=== PATIENT | female | born 1965 | race Caucasian/White ===

== ENCOUNTER → 2020-12-12 14:14 | Outpatient (BNVA) | payer SELFPAY | PROVIDERS: Visit Provider Nurse Practitioner Family ==

== ENCOUNTER 2021-01-27 10:29 | Day surgery (SDC) | payer OTHER, SELFPAY ==
[2021-01-22 14:03] VITALS: BMI 35.4
--- NOTE | 2021-01-27 10:15 | P.CONAN_ITS ---
FORMERLY [facility], LATER [facility] Past Medical History Medical History Elevated cholesterol Hx of heartburn Low back pain Family History Family History Sister Diabetes Surgical History Surgical History H/O arthroscopy of left knee History of back surgery Social History Social History Household Members: None Smoking Status: Current every day smoker Tobacco Type: Cigarette Cigarettes Per Day: 10 Advance Directives: No Advance Directives Information Provided: No Advance Directives on File: No Meds Allergies Allergy/AdvReac Type Severity Reaction Status Date / Time No Known Allergies Allergy Verified 01/22/21 13:59 Active Medications: Current Medications Generic Name Dose Route Start Last Admin Trade Name Freq PRN Reason Stop Dose Admin Lactated Ringer's 1,000 mls @ 50 mls/hr 01/27/21 07:30 Lr IV .Q20H [facility] Home Medications Medication Instructions Recorded Confirmed Last Taken Type cholecalciferol (vitamin D3) 50 50 mcg PO DAILY 12/12/20 01/22/21 Unknown History mcg (2,000 unit) capsule acetaminophen 650 mg PO Q6H PRN 01/22/21 01/22/21 Unknown History calcium carbonate [Tums] 200 mg PO BID PRN 01/22/21 01/22/21 Unknown History ibuprofen-diphenhydramine cit 1 cap PO BEDTIME PRN 01/22/21 01/22/21 Unknown History [Advil PM] Exam Exam Date and Time: January 27, 2021 1015 Height,Weight and Vital Signs: Height 5 ft 9 in Weight 108.862 kg Airway Mallampati Class: II TM Dist: >3cm Neck ROM: Full Loose/Missing/Broken Teeth: No Heart: RRR Lungs: CTA Assessment and Plan Assessment Anesthesia Assessment: Anesthesia Plan Discussed and Chart Reviewed Final Anesthetic Review NPO: Yes ASA Class: II Final Preanesthetic Review: Meds/Allgs Chart Reviewed, Consent Obtained/Reviewed and Anes Risks/Benef Reviewed Patient Risk: Low Procedure Risk: Low Anesthetic Plan Anesthetic Plan: MAC: Disposition: Standard PACU
[2021-01-27 10:35] VITALS: BP 136/78; PULSE 78; RESP 18; TEMP 36.6; O2SAT 97
[2021-01-27] MEDS: Lactated Ringers 1,000 ML 50 ML IV (10:49)
--- NOTE | 2021-01-27 10:49 | MHC.SHP ---
Pre-Procedural Eval Section B Chief Complaint: Screening Relevant Family History (Specify if Yes): No Relevant Social History: Tobacco Use Present Medications: see Short Stay Collaborative assessment Medical History: Significant History (Elevated cholesterol Hx of heartburn Low back pain) History of Previous Operations: Relevant previous surgery/procedure and date(s) (arthroscopy, back surgery) Allergies: Allergies Allergy/AdvReac Type Severity Reaction Status Date / Time No Known Allergies Allergy Verified 01/22/21 13:59 Review of Systems Sugical H&P ROS: Negative: Constitution, Cardiovascular, Respiratory, Neurological, Psychiatric, Hem-Onc, Allergic/Immunologic, Gastrointestinal, Genitourinary, Musculoskeletal, Integumentary, Endocrine and Eyes/Ears/Nose/Throat Exam Surgical H&P Exam: Normal: HEENT, Normal: Heart, Normal: Lungs, Normal: Extremities, Normal: Abdomen, Normal: Skin and Normal: Neurological Plan Diagnosis/Plan: Unchanged I have reviewed the history and physical and performed a pertinent physical examination on my patient. No changes have occurred unless specified.
--- NOTE | 2021-01-27 11:20 | PM.OP ---
Brief Operative Note Date of Service: 01/27/21 Pre-op diagnosis: colon screen Post-op diagnosis: same Procedure: see op note Surgeon: Carley Cantu MD Anesthesia: MAC Estimated blood loss (mL): 0 Condition: stable Disposition: PACU
--- NOTE | 2021-01-27 11:21 | W.PM.OPN ---
Operative Note Operative Note Date of Service: 01/27/21 Narrative: Operative Information Procedure Description: Colonoscopy COLONOSCOPY Instrument: Olympus variable stiffness pediatric scope 190L Colonoscopy Monitoring: Vital signs and clinical assessment, continuous EKG monitoring, Pulse oximetry, Carbon Dioxide monitoring and blood pressure monitoring were done throughout the procedure. Colon withdrawal time was 9 minutes. Procedure: The patient was placed in the left lateral decubitis position and pre-procedure medications were administered. After a digital rectal examination of the ano-rectum, the video colonoscope was inserted into the rectum and advanced through the colon to the cecum/TI. The colonoscope was slowly withdrawn in a retrograde panoramic fashion and the colon mucosa was carefully examined including a retroflexed view of the rectum. Findings and interventions are described below. Procedure Difficulty: easy Findings: Terminal Ileum-normal Cecum:normal Ascending Colon: few scattered diverticula Transverse Colon -normal Descending Colon:normal Sigmoid Colon: moderate severe diverticulosis Rectum: Retroflexion with small internal hemorrhoids, grade I Anorectum - normal Colon preparation: [place] Bowel Preparation Scale Right colon; 3 Transverse colon: 2 Left colon; 2 (0 = Unprepared colon segment with mucosa not seen due to solid stool that cannot be cleared. 1 = Portion of mucosa of the colon segment seen, but other areas of the colon segment not well seen due to staining, residual stool and/or opaque liquid. 2 = Minor amount of residual staining, small fragments of stool and/or opaque liquid, but mucosa of colon segment seen well. 3 = Entire mucosa of colon segment seen well with no residual staining, small fragments of stool or opaque liquid) Impression and Post Procedure Diagnosis: internal hemorrhoids diverticular disease Plan: High fiber diet leaflet Avoid straining at stool, epsom salts and sitz bath, anusol supps or cream as needed Repeat Colonoscopy in 10 years or earlier if clinically indicated Above findings were reviewed with the patient and relevant handouts were provided if indicated.
[2021-01-27 11:25] VITALS: BP 134/84; PULSE 70; RESP 18; TEMP 37; O2SAT 98
[2021-01-27 11:40] VITALS: BP 113/72; PULSE 61; RESP 17; O2SAT 97
[2021-01-27 11:55] VITALS: BP 117/73; PULSE 60; RESP 16; TEMP 37.1; O2SAT 100
== END 2021-01-27 12:22 | disposition home or self-care (01) ==
PROVIDERS: PCP Student in an Organized Health Care Education/Training Program; Visit Provider Internal Medicine Gastroenterology
PROC: 0DJD8ZZ Inspection of Lower Intestinal Tract, Via Natural or Artificial Opening Endoscopic (ICD-10-PCS; CPT 45378; principal; 2021-01-27 11:40)
DX: Z12.11 Encounter for screening for malignant neoplasm of colon (principal); K57.30 Diverticulosis of large intestine without perforation or abscess without bleeding; K64.0 First degree hemorrhoids; E78.00 Pure hypercholesterolemia, unspecified; F17.210 Nicotine dependence, cigarettes, uncomplicated; Z79.899 Other long term (current) drug therapy
CPT/HCPCS: 45378

== ENCOUNTER → 2021-02-03 14:34 | Outpatient (BNVA) | payer OTHER, SELFPAY | PROVIDERS: PCP Student in an Organized Health Care Education/Training Program; Visit Provider Nurse Practitioner Family ==

== ENCOUNTER 2023-12-02 10:16 | Outpatient (REF) | payer OTHER, SELFPAY ==
[2023-12-02 14:34] LABS: Anion Gap 13 (12-20); Blood Urea Nitrogen 16 mg/dL (9-16); Carbon Dioxide 25 mmol/L (22-29); Chloride 105 mmol/L (96-108); Estimated Glomerular Filt Rate > 60; Glucose Random 76 mg/dL (60-115); Potassium 4.1 mmol/L (3.3-5.1); Sodium 139 mmol/L (135-145)
[2023-12-03 04:18] LABS: CT PCR NOT DETECTED (Not Detect.); NG PCR NOT DETECTED (Not Detect.)
== END 2023-12-02 10:17 | disposition home or self-care (01) ==
LOC: HO.CHCLDS 10:16
PROVIDERS: Visit Provider Student in an Organized Health Care Education/Training Program
DX: E78.5 Hyperlipidemia, unspecified (principal)
CPT/HCPCS: 0353U; 36415; 80048; 88142

== ENCOUNTER 2025-05-29 14:57 | Outpatient (AMB) | payer OTHER, SELFPAY ==
--- NOTE | 2025-05-29 15:14 | MHC.OFFVIS ---
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 States left is worse. Patient reports she is having numbness and tingling all day long and worse at night. Reports she is unable to sleep laying flat due to this and has to be sitting up right for some relief. Has tried wrist braces and says some days they help some days they make it worse. She utilizes her braces for sleep. She has not tried any occupational therapy. Reports she is having tingling in the 1st, 2nd, and 3rd figits of her bilateral hands. She has an EMG/NCS scheduled for 06/26/25. She states her hands are equal in symptoms. Would like cortisone injections. 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 She complains of numbness in her bilateral hands, L>R. Symptoms intermittent, but daily, worse at night & affecting her sleep. She says she has more constant tingling in the median nerve distribution, and denies any small finger numbness. She says that lying flat on her back makes her numbness worse and she has to sleep propped up. She finds bracing helps occasionally, but also sometimes makes her symptoms worse. She denies any other treatment options. She is scheduled to see Neurology on 06/26/25, she believes for a NCS. 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 Review of Systems Const All systems reviewed & are unremarkable except as noted in HPI and below Physical Exam Const General: cooperative, healthy appearing and no acute distress Orientation/consciousness: patient oriented x3 HEENT Head: Yes normocephalic and Yes atraumatic Eyes EOM: EOMs intact bilaterally Resp Effort & Inspection: normal respiratory effort and able to speak in complete sentences Cardio Jugular venous distension: no JVD Skin General skin exam: turgor normal Rashes: no rashes Neuro General: patient oriented x3 Extrem Other: Evaluation of Bilateral Upper Extremity: The patient is alert, oriented, and in no acute distress Neuro: Dense numbness in the median nerve distribution bilaterally. Normal sensation in the ulnar nerve distribution bilaterally No thenar or intrinsic wasting Good APB muscle belly firing and good finger cross Vascular: Cap refill brisk ROM: She can make a fist and extend all her digits Skin: No lacerations or abrasions. General: No Ecchymosis. No Erythema or evidence of infection. Psych Appearance: grossly normal Affect: normal affect Attitude: cooperative Assessment & Plan Assessment & Plan (1) Numbness and tingling in both hands: Code(s): R20.0 - Anesthesia of skin; R20.2 - Paresthesia of skin Category: Medical Plan Assessment & Plan: 1. Left hand numbness In the median nerve distribution With dense numbness 2. Right hand numbness In the median nerve distribution With dense numbness Patient reports worsening of symptoms when lying flat on her back or sides, and finds relief when sleeping propped up & reclining. I educated her about carpal & cubital tunnel syndrome She has an appointment with neurology on 06/26/25, she believes for a NCS I ordered a NCS to assess for peripheral nerve compression She will follow up when completed for review Scribed for Alida Aguilar MD by [address] director biomedical engineering, on 05/29/25 at 3:20 PM, EST. Orders: Orders NE electromyogram (EMG) Today R20.0 - Anesthesia of skin, R20.2 - Paresthesia of skin NE nerve conduction velocity Today R20.0 - Anesthesia of skin, R20.2 - Paresthesia of skin Coding Level of Care Code New Pt Level 3 (10386) Diagnoses Numbness and tingling in both hands R20.0; R20.2
--- OUTSIDE RECORDS SUMMARY | 2025-05-29 15:48 | XMS_ITS | Encounter Summary ---
Author Organization [employer] Address [address] 7 [place] [address] Care Team Providers Care Coremaker Machine Name Role Phone Tianna Pereyra MD Primary Care Provider [phone] Encounter Details Date Type Department Care Team ([facility] Contact Info) Description 08/21/2024 Orders Only [facility] MED & PEDS [address], [place] [id number] Tianna Pereyra MD [address] [place] [address] Social History Tobacco Use Types Packs/Day Years Used Date Smoking Tobacco: Every Day Cigarettes Smokeless Tobacco: Never Alcohol Use Standard Drinks/Week Comments Never 0 (1 standard drink = 0.6 oz pur e alcohol) Alcohol Answer Date Recorded Frequency of Alcohol Consumption Not on file 08/17/2024 Average Number of Drinks Not on file 024 Frequency of Binge Drinking Not on file 08/01 Score 0 08/17/2024 Depression Answer Date Recorded Patient Health Questionnaire-9 Score 4 08/17/2024 Patient Health Questionnaire-9 Score 4 08/17/2024 Last PHQ-9: Questionnaire Data Not on file 1 Housing Stability Answer Date Recorded What is your housing situation today? I have [place] 12/02/[address] you li ve. Do you have problems with any of the following? None of the above 12/02/2023 Food Insecurity Answer Date Recorded Within the past 12 months, y ou worried that your food would run out before you got money to buy more: Never True 12/02/2023 Within the past 12 months,th e food you bought just didn't last and you didn't have enough money to get more: Never True 11/2023 Transportation Answer Date Recorded In the past 12 months, has l ack of transportation kept you from medical appts, meetings, work or from getting things needed for daily living? No 12/02/2023 Utilities Answer Date Recorded In the past 12 months, has t he electric, gas, oil or water company threatened to shut off services in your home? No 12/02/2023 Depression Answer Date Recorded Patient Health Questionnaire-2 Score 0 08/17/2024 Internet Access Answer Date Recorded Internet Access Q1 No 08/17/2024 Internet Access Q2 I do not want or need it 08/01 Comments No Sex and Gender Information Value Date Recorded Sex Assigned at Female 08/31/2022 10:18 AM EDT Legal Sex Female 10:18 AM EDT Gender Identity Female 08/31/2022 10:18 AM EDT Sexual Orientation Straight 08/31/2022 10 :18 AM EDT documented as of this encounter Plan of Treatment Not on file documented as of this encounter Visit Diagnoses Not on filedocumented in this encounter Additional Health Concerns Assessment Noted Time PHQ-9 Depression Total Score: 4 08/17/20 24 10:49 AM EDT documented as of this encounter Care Teams Coremaker Machine Relationship Specialty Start Date End Date Tianna Pereyra MD [address] [place] [address] PCP - General Family Medicine 11/12/20 documented as of this encounter
== END 2025-05-29 15:34 | disposition home or self-care (01) ==
LOC: HO.HOS 14:58
PROVIDERS: PCP Student in an Organized Health Care Education/Training Program; Visit Provider Orthopaedic Surgery
DX: R20.0 Anesthesia of skin (principal); R20.2 Paresthesia of skin
CPT/HCPCS: 99203

== ENCOUNTER → 2025-05-29 14:57 | Outpatient (BNVA) | payer OTHER, SELFPAY | PROVIDERS: PCP Student in an Organized Health Care Education/Training Program; Visit Provider Orthopaedic Surgery | DX: R20.0 Anesthesia of skin (principal); R20.2 Paresthesia of skin | CPT/HCPCS: 99202 ==

== ENCOUNTER 2025-06-26 08:23 | Outpatient (REF) | payer OTHER, SELFPAY ==
--- OUTSIDE RECORDS SUMMARY | 2025-06-26 08:34 | XMS_ITS | Encounter Summary ---
Author Organization [employer] Address [address] [place] [address] 7 [place] [address] Care Team Providers Care Senior Physician Name Role Phone Tianna Pereyra MD Primary Care Provider [phone] Demarco Balderrama CNP Primary Care Provider [phone] Encounter Details Date Type Department Care Team ([facility] st Contact Info) Description 08/21/2024 Orders Only [facility] MED & PEDS [address] [place], [place] [phone] Tianna Pereyra MD [address] [place] [address] Social History Tobacco Use Types Packs/Day Years [...] documented as of this encounter Care Teams Senior Physician Relationship Specialty Start Date End Date Tianna Pereyra MD [address] [place] [address] PCP - General Family Medicine 11/12/20 06/10/25 Demarco Balderrama CNP [address] [place] [address] PCP - General Family Medicine 06/11/25 documented as of this encounter
--- OUTSIDE RECORDS SUMMARY | 2025-06-26 08:35 | XMS_ITS | Clinical Summary ---
Author Organization [employer] Address [address] [place] [address] [place] [address] Care Team Providers Care Wool Hat Flanger Name Role Phone Tacos Juliantannaandrew [place] Primary Care Provider [phone] Allergies No known active allergies Medications cholecalciferol (Vitamin D-3) 25 MCG (1000 UT) capsule Take 1 capsule (25 mcg) by mouth Once per day. 90 capsule 1 08/21/2024 Active simvastatin (Zocor) 10 MG tablet TAKE 1 TABLET BY MOUTH ONCE DAILY IN THE EVENING 30 tablet 3 04/02/2025 Active gabapentin (Neurontin) 100 MG capsule Take 1 capsule (100 mg) by mouth 2 times daily. 60 capsule 04/12/2025 Active Active Problems Problem Noted Date Diagnosed Date Bilateral carpal tunnel syndrome 04/12/2025 Hyperlipidemia 08/17/2024 Encounters Date Type Department Care Team Description 05/14/2025 Orders Only [facility] MED & PEDS [address] [place] [address] Stephen Dsouza MD Bilateral carpal tunnel syndrome (Primary Dx) 04/24/2025 Telephone [facility] [employer] [address] [place], [place] [phone] Stephen Dsouza MD EMG ORDER 04/13/2025 Telephone [facility] [employer] [address] [place], [place] [phone] Stephen Dsouza MD EMG ORDER 04/12/2025 4:15 PM EDT Office Visit [facility] PEDS [address] [place] [address] Stephen Dsouza MD Bilateral carpal tunnel syndrome (Primary Dx) 04/12/2025 Travel 04/09/2025 Telephone [facility] CH[facility] MED & PEDS [address] [place] [address] Tianna Pereyra MD Nurse Triage 04/01/2025 Refill [facility] MEDICINE [address] [place] [address] Tianna Pereyra MD from Last 3 Months Immunizations Immunization Administration Dates Next Due Influenza Injectable Quadriv alant Preservative Free IIV4 MDCK 07/09/2023,07/09/2022,07/02/2021 Influenza injectable quadriv alent preservative free 08/02/2020,07/02/2015 Influenza, IIV3, injectable 07/09/2014, 3 Influenza, seasonal, injecta ble, preservative free 06/28/2024,07/14/2016 Influenza, trivalent, adjuvanted 07/11/2017 Tdap 08/17/2024 Zoster, Recombinant 08/02/2020 Social History Tobacco Use Types Packs/Day Years Used Date Smoking Tobacco: Every Day Cigarettes Smokeless Tobacco: Never Tobacco Cessation:Ready to Q uit: Not Asked; Counseling Given: Not Answered Alcohol Use Standard Drinks/Week Comments Never 0 [...] Orientation Straight 08/31/2022 10 :18 AM EDT Last Filed Vital Signs Vital Sign Reading Time Taken Comments Blood Pressure 132/76 04/12/2025 4:03 PM EDT Pulse 76 04/12/2025 4:03 PM EDT Temperature 36.1 C (96.9 F) 04/12/2025 4:03 PM EDT Respiratory Rate 20 04/12/2025 4:03 PM EDT Oxygen Saturation 98% 08/17/2024 10:44 AM EDT Inhaled Oxygen Concentration - - Weight 103 kg (226 lb) 04/12/2025 4:03 PM EDT Height 172.1 cm (5' 7.75 ) 04/12/2025 4:03 PM ED T Body Mass Index 34.62 04/12/2025 4:03 PM EDT Plan of Treatment Health Maintenance Due Date Last Done Comments CT Colonography 1965 FIT DNA/Cologuard 1965 FIT 1965 FOBT 1965 HIV Screening 1965 Sigmoidoscopy 1965 Disability Screening 1965 Hepatitis C Screening 1983 Hepatitis B Vaccines (1 of 3 - 19+ 3-dose series) 1984 Pneumococcal Vaccine: 50+ Years (1 of 2 - PCV) 1984 Mammogram 2005 Zoster Vaccines (2 of 2) 09/27/2020 08/02/2020 COVID-19 Vaccine (3 - season) 2024 03/03/2021, 02/09/2021 Influenza Vaccine (#1) 2025 4, 07/09/2023, 07/09/2022, Additional history exists Alcohol/Substance Use Screening 08/17/2025 08/17/2024 Depression Screening 08/17/2025 08/17/2024, 08/17/20 24 SDOH Screening 08/17/2025 08/17/2024 Tobacco Screening 08/17/2025 08/17/2024 HPV/Cotest 11/12/2025 11/12/2020 Cervical Cancer Screening 12/02/2026 Pap Smear 12/02/2026 12/02/2023, 11/12/2020 Lipid Panel 08/18/2029 08/18/2024, 12/04/2020 Colonoscopy 01/27/2031 01/27/2021 Colorectal Cancer Screening 01/27/2031 DTaP/Tdap/Td Vaccines (2 - Td or Tdap) 08/17/2034 08/17/2024 RSV Patients and Patients Aged 60 years or older (1 - 1-dose 75+ series) 2040 HIB Vaccines Aged Out No longer eligi ble based on patient's age to complete this topic HPV Vaccines Aged Out No longer eligi ble based on patient's age to complete this topic Hepatitis A Vaccines Aged Out No long er eligible based on patient's age to complete this topic IPV Vaccines Aged Out No longer eligi ble based on patient's age to complete this topic Meningococcal B Vaccine Aged Out No l onger eligible based on patient's age to complete this topic Meningococcal Vaccine Aged Out No asya blanquita eligible based on patient's age to complete this topic RSV under 20 months Aged Out No longe r eligible based on patient's age to complete this topic Rotavirus Vaccines Aged Out No longer eligible based on patient's age to complete this topic Procedures Procedure Name Priority Date/Time Associated Diagnosis Comments LIPID PANEL, STANDARD Routine 08/18/2024 Hyperlipidemia, unspecified hyperlipidemia type PAP SMEAR Routine 12/02/2023 10:18 AM EST Pap smear for cervical cancer screening HM COLONOSCOPY Routine 01/27/2021 HPV MRNA E6/E7 Routine 11/12/2020 3:20 PM EST from Last 3 Months or Most Recently Relevant to Health Maintenance Results * Lipid Panel, Standard (08/18/2024) Blood Venous blood specimen / Unknown us Tianna Pereyra MD LAB BLOOD ORDERABLES Final Resul t [facility] [address] [place] [phone] * Pap Smear (12/02/2023 10:18 AM EST) Swab Cervical swab / Unknown 12/02/2023 10:18 AM EST 12/03/2023 9:40 AM EST Narrative [facility] - 12/15/2023 3:05 PM EST ----- ------- Name: Adele Damon Age/Sex: 58/F : 1965 Unit#: [id number] Attend Dr: Tianna Pereyra MD Re12/02/23 Status: DEP REF Location: [facility] Disch: ----- ------- SPEC : [id number] RECD: 12/03/23 STATUS: JUSTINE TORIBIO NUM: [id number] JOYCE: 12/02/23-1018 [facility] DR: Tianna Pereyra MD ENTERED: 12/03/23-1004 SP TYPE: Pap Smr OTHR DR: ORDERED: Pap Smear Interpretation Satisfactory for evaluation. Negative for intraepithelial lesion or malignancy. Clinical Information LMP: Postmenopausal Previous PAP test: Unknown date/findings Material Received ThinPrep-Vaginal/Cervical ----- ------- Signed (signature on file) PAPO Maldonado (ASCP) 12/15/23 1505 ----- ------- END OF REPORT Tianna Pereyra MD LAB CYTOLOGY ORDERABLES Final Re sult [facility] [address] [place] [phone] * Hm Colonoscopy (01/27/2021) Colonoscopy Normal Normal Narrative Ina Montes - 01/27/2021 Recommended 10 years. See see external hospital admission note on 01/27/2021 Historical Provider HEALTH MAINTENANCE Final Result * HPV mRNA E6/E7 (11/12/2020 3:20 PM EST) HPV nRNA E6/E7 Not Detected Not Detected [facility] Comment: This test was performed using the APTIMA HPV Assay ([employer] This assay detects E6/E7 viral messenger RNA (mRNA) from 14 high-risk HPV types (16,18,31,33,35,39,45,51,52,56,58,59,66,68). The analytical performance characteristics of this assay have been determined by [employer]. The modifications have not been cleared or approved by the FDA. This assay has been validated pursuant to the CLIA regulations and is used for clinical purposes. 11/12/2020 3:20 PM EST us Marifer OLMOS LAB BLOOD ORDERABLES Marichuy salvador Result [facility] from Last 3 Months or Most Recently Relevant to Health Maintenance Insurance [employer] 3 Care Teams Wool Hat Flanger Relationship Specialty Start Date End Date Demarco Balderrama CNP [address] [place] [id number] PCP - General Family Medicine 06/11/25
--- NOTE | 2025-06-26 08:38 | EMG_ITS ---
Patient Complaints: Paresthesia of bilateral upper extremity Procedure done: EMG / NCV Bilateral median and ulnar motor and sensory studies were performed bilateral radial sensory studies were performed an EMG needle examination was performed. 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
== END 2025-06-26 08:24 | disposition home or self-care (01) ==
LOC: HO.NEURO 08:23
PROVIDERS: Absent Provider Orthopaedic Surgery; PCP Student in an Organized Health Care Education/Training Program; Visit Provider Internal Medicine
DX: G56.03 Carpal tunnel syndrome, bilateral upper limbs (principal)
CPT/HCPCS: 95886; 95911

== ENCOUNTER → 2025-06-26 08:38 | Outpatient (BNV) | payer OTHER, SELFPAY | PROVIDERS: Absent Provider Orthopaedic Surgery; PCP Student in an Organized Health Care Education/Training Program; Visit Provider Psychiatry & Neurology Neurology | DX: G56.03 Carpal tunnel syndrome, bilateral upper limbs (principal) | CPT/HCPCS: 95886; 95911 ==

== ENCOUNTER 2025-07-10 15:13 | Outpatient (AMB) | payer OTHER, SELFPAY ==
--- NOTE | 2025-07-10 15:43 | A.OFFVIS_ITS ---
Intake Visit Reasons: OV-Bilateral CTS-EMG follow up Intake Note: Adele 59 yr old right hand dominant female presents today for her EMG review of bilateral hands. States she is not interested in discussing surgery. States she will have a chat with her PCP first. 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 She complains of numbness in her bilateral hands, L>R. Dense numbness in the median nerve distribution, worse at night & affecting her sleep. She denies any small finger numbness. She finds bracing helps occasionally, but also sometimes makes her symptoms worse. She denies any other treatment options. 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 Left carpal tunnel syndrome, moderate With dense numbness 2. Right carpal tunnel syndrome, moderate With dense numbness I educated her about this condition I discussed operative and non-operative treatment options The patient would like to proceed with surgery, but no sooner than sometime in August. She would like to begin with her left side We can discuss treatment for her right hand when she has recovered from surgery. The risks and benefits of operative treatment were discussed with the patient and the patient wishes to proceed with surgery. These risks include, but are not limited to risk of damage to blood vessels, nerves, tendons, infection, recurrence, incomplete relief of preoperative symptoms, persistent pain, possible need for further surgery and the risks associated with regional blocks and anesthesia. I explained the risks of her sensation not returning, but that surgery is important to maintain muscle function and preserve any sensation possible. She expressed understanding The plan is to take the patient to the operating room sometime in the next few weeks for the following procedures: 1. Left carpal tunnel release, under local All of the preoperative paperwork including the consent was reviewed today. All the patient's questions were answered. The patient understands that they will be contacted by our neurosurgery research director soon to schedule this procedure She denies Diabetes, blood thinners, asthma, heart, lung, kidney issues Scribed for Alida Aguilar MD by [address] Street, biomedical engineer, on 07/10/25 at 3:50 PM, EST. Coding Level of Care Code Est Pt Level 4 (75509) Diagnoses Carpal tunnel syndrome of right wrist G56.01 Carpal tunnel syndrome of left wrist G56.02
--- OUTSIDE RECORDS SUMMARY | 2025-07-10 17:36 | XMS_ITS | Clinical Summary ---
Author Organization [employer] Address [address] [place] [address] 7 [place] [address] Care Team Providers Care Plate Finisher Name Role Phone Tacos Julianalva LUGO Primary Care Provider [phone] Allergies No known active allergies Medications gabapentin (Neurontin) 100 MG capsule Take 1 capsule (100 mg) by mouth 2 times daily. 60 capsule 04/12/20 25 Active cholecalcifero l (Vitamin D-3) 25 MCG (1000 UT) capsule TAKE ONE CAPSULE BY MOUTH EVERY DAY 90 capsule 1 07/03/20 25 Active simvastatin (Zocor) 10 MG tablet Take 1 tablet (10 mg) by mouth in the evening. 30 tablet 3 07/03/20 25 Active cholecalcifero l (Vitamin D-3) 25 MCG (1000 UT) capsule Take 1 capsule (25 mcg) by mouth Once per day. 90 capsule 1 08/21/20 24 025 Discontinued simvastatin (Zocor) 10 MG tablet TAKE 1 TABLET BY MOUTH ONCE DAILY IN THE EVENING 30 tablet 3 04/02/20 25 025 Discontinued(Re order (will not trigger notification to Pharmacy)) Active Problems Problem Noted Date Diagnosed Date Bilateral carpal tunnel syndrome 04/12/2025 Hyperlipidemia 08/17/2024 Encounters Date Type Department Care Team Description 07/03/2025 Refill [facility] MEDICINE [address] [place] [address] Tianna Pereyra MD 07/02/2025 Refill [facility] MED & PEDS [address], [place] [phone] Tianna Pereyra MD 05/14/2025 Orders Only [facility] MED & PEDS [address] [place] [address] Stephen Dsouza MD Bilateral carpal tunnel syndrome (Primary Dx) 04/24/2025 Telephone [facility] [address] [place] [address] Stephen Dsouza MD EMG ORDER 04/13/2025 Telephone [facility] [address] [place] [address] Stephen Dsouza MD EMG ORDER 04/12/2025 4:15 PM EDT Office Visit [facility] PEDS [address] [place] [address] Stephen Dsouza MD Bilateral carpal tunnel syndrome (Primary Dx) 04/12/2025 Travel 04/09/2025 Telephone [facility] MED & PEDS [address] [place] [address] Tianna Pereyra MD Nurse Triage from Last 3 Months Immunizations Immunization Administration [...] (2 of 2) 09/27/2020 08/02/2020 COVID-19 Vaccine ( - season) 2025 03/03/2021, 02/09/2021 Influenza Vaccine (#1) 2025 , 07/09/2023, 07/09/2022, Additional history exists Alcohol/Substance Use [...] MD LAB BLOOD ORDERABLES Final Resul t [facility] [address] [place] [phone] * Pap Smear (12/02/2023 10:18 AM EST) Swab Cervical swab / Unknown 12/02/2023 10:18 AM EST 12/03/2023 9:40 AM EST Narrative [facility] - 12/15/2023 3:05 PM EST ----- ------- Name: Adele Damon Age/Sex: 58/F : 1965 Unit#: [id number] Attend Dr: Tianna Pereyra MD Re12/02/23 Status: DEP REF Location: [facility] Disch: ----- ------- SPEC : [id number] RECD: 12/03/23 STATUS: JUSTINE TORIBIO NUM: [id number] JOYCE: 12/02/23-[address] [facility] [address]: Tianna Pereyra MD ENTERED: 12/03/23-1004 SP TYPE: Pap Smr OTHR DR: ORDERED: Pap Smear Interpretation Satisfactory for evaluation. Negative for intraepithelial lesion or malignancy. Clinical Information LMP: Postmenopausal Previous PAP test: Unknown date/findings Material Received ThinPrep-Vaginal/Cervical ----- ------- Signed (signature on file) PAPO Maldonado ([facility]) 12/15/23 1505 ----- ------- END OF REPORT Tianna Pereyra MD LAB CYTOLOGY ORDERABLES Final Re sult [facility] [address] [place] [address] [phone] * Hm Colonoscopy (01/27/2021) Colonoscopy Normal Normal Narrative Ina Montes - 01/27/2021 Recommended 10 years. See see external hospital admission note on 01/27/2021 Historical Provider HEALTH MAINTENANCE Final Result * HPV mRNA E6/E7 (11/12/2020 3:20 PM EST) HPV nRNA E6/E7 Not Detected Not Detected [facility] Comment: This test was performed using the APTIMA HPV Assay ([employer] This assay detects E6/E7 viral messenger RNA (mRNA) from 14 high-risk HPV types (16,18,31,33,35,39,45,51,52,56,58,59,66,68). The analytical performance characteristics of this assay have been determined by [employer]. The modifications have not been cleared or approved by the FDA. This assay has been validated pursuant to the CLIA regulations and is used for clinical purposes. 11/12/2020 3:20 PM EST Marifer Miller CNM LAB BLOOD ORDERABLES Marichuy l Result Performing Organization Address City/[facility]/ZIP Co de Phone Number [facility] [address] from Last 3 Months or Most Recently Relevant to Health Maintenance Insurance [facility] 3 Care Teams Plate Finisher Relationship Specialty Start Date End Date Demarco Balderrama CNP [address] [place] [id number] PCP - General Family Medicine 06/11/25
--- OUTSIDE RECORDS SUMMARY | 2025-07-10 17:36 | XMS_ITS | Encounter Summary ---
Author Organization [employer] Address [address] [place] [address] 7 [place] [address] Care Team Providers Care Watch And Clock Repair Clerk Name Role Phone Tianna Pereyra MD Primary Care Provider [phone] Demarco Balderrama CNP Primary Care Provider [phone] Encounter Details Date Type Department Care Team ([facility] st Contact Info) Description 08/21/2024 Orders Only [facility] MED & PEDS [address] [place], [place] [phone] Tianna Pereyra MD [address] [place] [address] Social History Tobacco Use Types Packs/Day Years [...] documented as of this encounter Care Teams Watch And Clock Repair Clerk Relationship Specialty Start Date End Date Tianna Pereyra MD [address] [place] [address] PCP - General Family Medicine 11/12/20 06/10/25 Demarco Balderrama CNP [address] [place] [address] PCP - General Family Medicine 06/11/25 documented as of this encounter
== END 2025-07-10 16:09 | disposition home or self-care (01) ==
LOC: HO.HOS 15:14
PROVIDERS: PCP Student in an Organized Health Care Education/Training Program; Visit Provider Orthopaedic Surgery
DX: G56.03 Carpal tunnel syndrome, bilateral upper limbs (principal)
CPT/HCPCS: 99214

== ENCOUNTER → 2025-07-10 15:13 | Outpatient (BNVA) | payer OTHER, SELFPAY | PROVIDERS: PCP Student in an Organized Health Care Education/Training Program; Visit Provider Orthopaedic Surgery | DX: G56.01 Carpal tunnel syndrome, right upper limb (principal); G56.02 Carpal tunnel syndrome, left upper limb | CPT/HCPCS: 99212 ==

== ENCOUNTER 2025-09-03 07:19 | Day surgery (SDC) | payer OTHER, SELFPAY ==
--- OUTSIDE RECORDS SUMMARY | 2025-08-07 15:09 | XMS_ITS | Clinical Summary ---
Author Organization [employer] Address [address] [place] [address] [address] [place] [address] Care Team Providers Care Supervisor Title Name Role Phone TacosJuliantannaandrew PARISH Primary Care Provider [phone] Allergies No known active allergies Medications gabapentin (Neurontin) 100 MG capsule Take 1 capsule (100 mg) by mouth 2 times daily. 60 capsule 04/12/2025 Active cholecalciferol (Vitamin D-3) 25 MCG (1000 UT) capsule TAKE ONE CAPSULE BY MOUTH EVERY DAY 90 capsule 1 07/03/2025 Active simvastatin (Zocor) 10 MG tablet Take 1 tablet (10 mg) by mouth in the evening. 30 tablet 3 07/03/2025 Active Active Problems Problem Noted Date Diagnosed Date Bilateral carpal tunnel syndrome 04/12/2025 Hyperlipidemia 08/17/2024 Encounters Date Type Department Care Team Description 07/03/2025 Refill [facility] MEDICINE [address] [place] [address] Tianna Pereyra MD 07/02/2025 Refill [facility] CHC MED & PEDS [address] [place], [place] [phone] Tianna Pereyra MD 05/14/2025 Orders Only [facility] MED & PEDS [address] [place], [place] [phone] Stephen Dsouza MD Bilateral carpal tunnel syndrome (Primary Dx) from Last 3 Months Immunizations Immunization Administration [...] 09/27/2020 08/02/2020 COVID-19 Vaccine (3 - season) 2025 03/03/2021, 02/09/2021 Influenza Vaccine [...] MD LAB BLOOD ORDERABLES Final Resul t [facility] [address] [place] [address] [phone] * Pap Smear (12/02/2023 10:18 AM EST) Swab Cervical swab / Unknown 12/02/2023 10:18 AM EST 12/03/2023 9:40 AM EST Narrative [facility] - 12/15/2023 3:05 PM EST ----- ------- Name: Adele Damon Age/Sex: 58/F : 1965 Unit#: [id number] Attend Dr: Tianna Pereyra MD Re12/02/23 Status: [facility] Disch: ----- ------- SPEC : [id number] RECD: 12/03/23 STATUS: JUSTINE TORIBIO NUM: [id number] JOYCE: 12/02/23-[address] [facility] [address]: Tianna Pereyra MD ENTERED: 12/03/23-1003 SP TYPE: Pap Smr OTHR DR: ORDERED: Pap Smear Interpretation Satisfactory for evaluation. Negative for intraepithelial lesion or malignancy. Clinical Information LMP: Postmenopausal Previous PAP test: Unknown date/findings Material Received ThinPrep-Vaginal/Cervical ----- ------- Signed (signature on file) PAPO Maldonado ([facility]) 12/15/23 1505 ----- ------- END OF REPORT Tianna Pereyra MD LAB CYTOLOGY ORDERABLES Final Re sult [facility] [address] [place] [phone] * Hm Colonoscopy (01/27/2021) Pathologist [facility] Colonoscopy Normal Normal Narrative Ina Montes - 01/27/2021 Recommended 10 years. See see external hospital admission note on 01/27/2021 Historical Provider HEALTH MAINTENANCE Final Result * HPV mRNA E6/E7 (11/12/2020 3:20 PM EST) Pathologist [facility] HPV nRNA E6/E7 Not Detected Not Detected [facility] [employer] Comment: This test was performed using the APTIMA HPV Assay ([employer] This assay detects E6/E7 viral messenger RNA (mRNA) from 14 high-risk HPV types (16,18,31,33,35,39,45,51,52,56,58,59,66,68). The analytical performance characteristics of this assay have been determined by [employer]. The modifications have not been cleared or approved by the FDA. This assay has been validated pursuant to the CLIA regulations and is used for clinical purposes. 11/12/2020 3:20 PM EST us Marifer Miller CNM LAB BLOOD ORDERABLES Marichuy salvador Result [facility] [address] [place] [address], from Last 3 Months or Most Recently Relevant to Health Maintenance Insurance [employer] 3 Care Teams Supervisor Title Relationship Specialty Start Date End Date Demarco Balderrama CNP PCP - General Family Medicine 06/11/25
--- OUTSIDE RECORDS SUMMARY | 2025-08-07 15:09 | XMS_ITS | Encounter Summary ---
Author Organization [employer] Address [address] [place] [address] [address] [place] [address] Care Team Providers Care Rubber Tire Curer Name Role Phone Tianna Pereyra MD Primary Care Provider [phone] Demarco Balderrama CNP Primary Care Provider [phone] Encounter Details Date Type Department Care Team ([facility] st Contact Info) Description 08/21/2024 Orders Only [facility] MED & PEDS [address] [place], [place] [phone] Tianna Pereyra MD [address] [place] [address] Social History Tobacco Use Types Packs/Day Years [...] documented as of this encounter Care Teams Rubber Tire Curer Relationship Specialty Start Date End Date Tianna Pereyra MD [address] [place] [address] PCP - General Family Medicine 11/12/20 06/10/25 Demarco Balderrama CNP [address] [place] [address] PCP - General Family Medicine 06/11/25 documented as of this encounter
[2025-09-03 07:28] VITALS: BP 141/81; PULSE 79; RESP 16; TEMP 36.8; O2SAT 97; BMI 33.5
--- NOTE | 2025-09-03 08:50 | P.OP_ITS ---
Operative Note Operative Note Date of Service: 09/03/25 Narrative: Preop diagnosis: 1. Left Carpal tunnel syndrome Postop diagnosis: same Procedure: 1. Left Carpal tunnel release Surgeon: Alida Aguilar MD Professor Of Environmental Studies: None Anesthesia: local block using 1% lidocaine with epinephrine Findings: Thickened transverse carpal ligament. EBL: Less than 5 mL Specimens: None Complications: None Disposition: Brought to recovery room in stable condition Plan: Follow-up for 10-14 days for wound check and suture removal Indications: The patient is 59 years old, with left carpal tunnel syndrome that has been unresponsive to nonoperative management. The risks and benefits of operative treatment including but not limited to risk of damage to blood vessels, nerves, tendons, infection, persistent pain, persistent symptoms, or possible need for additional surgery were discussed with the patient and the patient wishes to proceed with surgery. Procedure: Once consent was obtained a local block was performed using a combination of 1% lidocaine with epinephrine. The patient was then brought back to the operating suite and placed on the operative table in supine position. The left upper extremity was prepped and draped in a standard surgical fashion. Once assured that we had a good block, a 2.0 cm longitudinal incision was made centered over the carpal tunnel. The incision was made through the skin to the subcutaneous tissues using a #15 blade. Dissection was made down to the level of the transverse carpal ligament with care being taken to protect the palmar cutaneous nerve. Once the transverse carpal ligament was clearly visualized, a longitudinal incision was made in the transverse carpal ligament 1st using a #15 blade, then using tenotomy scissors under direct visualization. Care was taken to look for and protect the motor branch of the median nerve when seen in this area. Once satisfied with our carpal tunnel release the wound was copiously irrigated with normal saline and hemostasis was obtained with a brief period of local pressure. The skin edges were reapproximated with some 5.0 nylon suture material and a sterile dressing was applied. The patient appears to have tolerated the procedure well and with no complicatio ns. All digits were well vascularized at the conclusion of the case.
--- NOTE | 2025-09-03 08:50 | MHC.SHP ---
Pre-Procedural Eval Section A - 24 Hr Update-Section A only Date of Service: 09/03/25 The patient is an INPATIENT: No Changes since office visit: No Cold of Flu in the past 2 weeks, No New Medical Problems, No Changes in Medication and No Patient answered all questions The patient has been examined within 24 hours of the surgical procedure. The History & Physical has been completed within 30 days and I have reviewed it.: Yes Section B - Complete if H&P > 30 days Chief Complaint: Carpal tunnel syndrome, left upper limb Allergies: Allergies Allergy/AdvReac Type Severity Reaction Status Date / Time No Known Allergies Allergy Verified 07/10/25 15:46 Plan I have reviewed the history and physical and performed a pertinent physical examination on my patient. No changes have occurred unless specified. Time Spent With Patient Time: Total time managing care of this patient today ____ minutes.
[2025-09-03 09:16] VITALS: BP 146/85; PULSE 65; RESP 16; O2SAT 97
== END 2025-09-03 09:24 | disposition home or self-care (01) ==
PROVIDERS: PCP Student in an Organized Health Care Education/Training Program; Visit Provider Orthopaedic Surgery
PROC: (CPT 64721; principal; 2025-09-03 09:30)
DX: G56.02 Carpal tunnel syndrome, left upper limb (principal); R20.0 Anesthesia of skin; M54.50 Low back pain, unspecified; E78.00 Pure hypercholesterolemia, unspecified; Z98.890 Other specified postprocedural states; F17.210 Nicotine dependence, cigarettes, uncomplicated
CPT/HCPCS: 64721; J0165; J2003

== ENCOUNTER → 2025-09-03 07:19 | Outpatient (BNV) | payer OTHER, SELFPAY | PROVIDERS: PCP Student in an Organized Health Care Education/Training Program; Visit Provider Orthopaedic Surgery | DX: G56.02 Carpal tunnel syndrome, left upper limb (principal) | CPT/HCPCS: 64721 ==

== ENCOUNTER 2025-09-17 09:38 | Outpatient (AMB) | payer OTHER, SELFPAY ==
[2025-09-17 09:56] VITALS: BMI 33.4
--- NOTE | 2025-09-17 09:56 | A.OFFVIS_ITS ---
Vital Signs 09/17/25 09:56 Height 5 ft 9 in Weight 226 lb BMI 33.4 Intake Visit Reasons: PO-Lt CTR 09/03/25 Intake Note: Adele is a 59 year old right hand dominant female who presents today for a Post-Operative Visit status post Left Carpal Tunnel Release performed by Dr. Aguilar on 09/03/25. Patient reports she is doing well. She continues having some numbness and tingling of the 2nd, 3rd, and 4th digits. She is not taking any pain medication at this time. Sutures removed and steri strips applied. Allergies No Known Allergies Allergy (Verified 09/17/25 09:57) HPI HPI PO-Lt CTR 09/03/25: Details: Adele is a 59 year old right hand dominant female who presents today for a Post-Operative Visit status post Left Carpal Tunnel Release performed by Dr. Aguilar on 09/03/25. Patient reports she is doing well. She continues having some numbness and tingling of the 2nd, 3rd, and 4th digits, but the patient states that she was having dense numbness prior to surgery and understands that it does take time to heal, and that there is a risk normal sensation will not return even with surgery. She is not taking any pain medication at this time. Sutures removed and steri strips applied. 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 Status post left carpal tunnel release DOS 09/03/2025 With partial symptomatic resolution postoperatively Patient appears to be recovering well postoperatively Patient is educated about the typical recovery course No under water times one-week, 2 lb weight limit x2 weeks Patient appears to be recovering very well, and requires no further acute follow-up with us postoperatively Patient is educated and worrisome signs and symptoms, and should call us if they experience any of these, including but not limited to redness, swelling, increased pain, and discharge Patient understands this and is amenable to this plan 2. Right carpal tunnel syndrome Symptoms constant, daily, worse at night I educated the patient about the condition. I discussed both operative and nonoperative treatment options. The patient would like to proceed with surgery. The risks and benefits of operative treatment were discussed with the patient and the patient wishes to proceed with surgery. These risks include, but are not limited to, risk of damage to blood vessels, nerves, tendons, infection, recurrence, incomplete relief of preoperative symptoms, persistent pain, possible need for further surgery, and the risks associated with regional blocks and/or anesthesia. Plan is to take the patient to the operating room at some point in the next few weeks for the following procedures: 1. Right carpal tunnel release under local All of the preoperative paperwork including the consent was discussed today. All of the patient's questions were answered in the clinic today. The patient understands that they will be in contact with our medical surgical tech to discuss scheduling their procedure. Patient denies diabetes, blood thinners, asthma, heart issues, lung issues, kidney issues, or current smoking. Coding Level of Care Code Est Pt Level 4 (40128) Diagnoses Carpal tunnel syndrome of right wrist G56.01 Carpal tunnel syndrome of left wrist G56.02
== END 2025-09-17 10:12 | disposition home or self-care (01) ==
LOC: HO.HOS 09:38
PROVIDERS: PCP Student in an Organized Health Care Education/Training Program
DX: G56.03 Carpal tunnel syndrome, bilateral upper limbs (principal)
CPT/HCPCS: 99214

== ENCOUNTER → 2025-09-17 09:38 | Outpatient (BNVA) | payer OTHER, SELFPAY | PROVIDERS: PCP Student in an Organized Health Care Education/Training Program | DX: G56.01 Carpal tunnel syndrome, right upper limb (principal); G56.02 Carpal tunnel syndrome, left upper limb | CPT/HCPCS: 99212 ==

== ENCOUNTER 2025-10-11 06:39 | Day surgery (SDC) | payer OTHER, SELFPAY ==
[2025-10-11 07:03] VITALS: BP 124/53; PULSE 70; RESP 16; TEMP 36.3; O2SAT 97; BMI 33.4
--- NOTE | 2025-10-11 07:50 | MHC.SHP ---
Pre-Procedural Eval Section A - 24 Hr Update-Section A only Date of Service: 10/11/25 The patient is an INPATIENT: No Changes since office visit: No Cold of Flu in the past 2 weeks, No New Medical Problems, No Changes in Medication and No Patient answered all questions The patient has been examined within 24 hours of the surgical procedure. The History & Physical has been completed within 30 days and I have reviewed it.: Yes Section B - Complete if H&P > 30 days Chief Complaint: Carpal tunnel syndrome, right upper limb Allergies: Allergies Allergy/AdvReac Type Severity Reaction Status Date / Time No Known Allergies Allergy Verified 09/17/25 09:57 Plan I have reviewed the history and physical and performed a pertinent physical examination on my patient. No changes have occurred unless specified. Time Spent With Patient Time: Total time managing care of this patient today ____ minutes.
--- NOTE | 2025-10-11 07:51 | P.OP_ITS ---
Operative Note Operative Note Date of Service: 10/11/25 Narrative: Preop diagnosis: 1. Right Carpal tunnel syndrome Postop diagnosis: same Procedure: 1. Right Carpal tunnel release Surgeon: Alida Aguilar MD Supervisor Aircraft Cleaning: Gera Hernandez. Anesthesia: local block using 1% lidocaine with epinephrine Findings: Thickened transverse carpal ligament. EBL: Less than 5 mL Specimens: None Complications: None Disposition: Brought to recovery room in stable condition Plan: Follow-up for 10-14 days for wound check and suture removal Indications: The patient is 59 years old, with right carpal tunnel syndrome that has been unresponsive to nonoperative management. The risks and benefits of operative treatment including but not limited to risk of damage to blood vessels, nerves, tendons, infection, persistent pain, persistent symptoms, or possible need for additional surgery were discussed with the patient and the patient wishes to proceed with surgery. Procedure: Once consent was obtained a local block was performed using a combination of 1% lidocaine with epinephrine. The patient was then brought back to the operating suite and placed on the operative table in supine position. The right upper extremity was prepped and draped in a standard surgical fashion. Once assured that we had a good block, a 2.0 cm longitudinal incision was made centered over the carpal tunnel. The incision was made through the skin to the subcutaneous tissues using a #15 blade. Dissection was made down to the level of the transverse carpal ligament with care being taken to protect the palmar cutaneous nerve. Once the transverse carpal ligament was clearly visualized, a longitudinal incision was made in the transverse carpal ligament 1st using a #15 blade, then using tenotomy scissors under direct visualization. Care was taken to look for and protect the motor branch of the median nerve when seen in this area. Once satisfied with our carpal tunnel release the wound was copiously irrigated with normal saline and hemostasis was obtained with a brief period of local pressure. The skin edges were reapproximated with some 5.0 nylon suture material and a sterile dressing was applied. The patient appears to have tolerated the procedure well and with no complications. All digits were well vascularized at the conclusion of the case.
== END 2025-10-11 09:22 | disposition home or self-care (01) ==
PROVIDERS: PCP Student in an Organized Health Care Education/Training Program; Visit Provider Orthopaedic Surgery
PROC: (CPT 64721; principal; 2025-10-11 08:10)
DX: G56.01 Carpal tunnel syndrome, right upper limb (principal); M54.50 Low back pain, unspecified; E78.00 Pure hypercholesterolemia, unspecified; R12 Heartburn; Z98.890 Other specified postprocedural states; F17.210 Nicotine dependence, cigarettes, uncomplicated
CPT/HCPCS: 64721; J0165; J2003; J2004

== ENCOUNTER → 2025-10-11 06:39 | Outpatient (BNV) | payer OTHER, SELFPAY | PROVIDERS: PCP Student in an Organized Health Care Education/Training Program; Visit Provider Orthopaedic Surgery | DX: G56.01 Carpal tunnel syndrome, right upper limb (principal) | CPT/HCPCS: 64721 ==

== ENCOUNTER 2025-10-23 09:56 | Outpatient (AMB) | payer OTHER, SELFPAY ==
[2025-10-23 10:13] VITALS: BMI 33.4
--- NOTE | 2025-10-23 10:13 | MHC.OFFVIS ---
Vital Signs 10/23/25 10:13 Height 5 ft 9 in Weight 226 lb BMI 33.4 Intake Visit Reasons: PO RT CTR 10/11/25 AR Intake Note: Adele is a 59 year old right hand dominant female who presents today for a Post-Operative Visit status post Right Carpal Tunnel Release, DOS: 10/11/[address] Aguilar. Patient reports she has numbness and tingling still however it is better. States she is doing well over all. Patient is not taking any pain medications at this time. Sutures removed and steri strips applied. Allergies No Known Allergies Allergy (Verified 10/23/25 10:24) HPI HPI PO RT CTR 10/11/25 AR: Details: Adele is a 59 year old right hand dominant female who presents today for a Post-Operative Visit status post Right Carpal Tunnel Release, DOS: 10/11/[address] Aguilar. Patient reports she has numbness and tingling still however it is better. States she is doing well over all. Patient is not taking any pain medications at this time. Reports some mild discomfort around incision site, but this is improving. Sutures removed and steri strips applied. 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 Neuro: Normal sensation of the tips of all digits of the right hand at this time Vascular: Cap refill brisk Pain: Some tenderness to palpation noted of incision site on volar right wrist No pain with range of motion of right hand ROM: Patient is able to make a closed fist and extend all digits of the right hand fully Skin: No lacerations or abrasions. General: No ecchymosis, erythema, or evidence of infection. Psych: Appears grossly normal Affect normal Attitude cooperative Assessment & Plan Assessment & Plan (1) Carpal tunnel syndrome of right wrist: Code(s): G56.01 - Carpal tunnel syndrome, right upper limb Category: Medical (2) Carpal tunnel syndrome of left wrist: Code(s): G56.02 - Carpal tunnel syndrome, left upper limb Category: Medical Plan 1. Status post right carpal tunnel release DOS 10/11/2025 With improving but not total symptomatic resolution postoperatively Patient appears to be recovering well postoperatively Patient is educated about the typical recovery course No under water times one-week, 2 lb weight limit x2 weeks Patient appears to be recovering very well, and requires no further acute follow-up with us postoperatively Patient is educated and worrisome signs and symptoms, and should call us if they experience any of these, including but not limited to redness, swelling, increased pain, and discharge Patient understands this and is amenable to this plan Follow-up as needed Coding Level of Care Code Global (14734) Diagnoses Carpal tunnel syndrome of right wrist G56.01 Carpal tunnel syndrome of left wrist G56.02
--- OUTSIDE RECORDS SUMMARY | 2025-10-23 10:48 | XMS_ITS | Encounter Summary ---
Author Organization [employer] Address [address] [place] [address] Care Team Providers Care Audit Clerk Name Role Phone Demarco Balderrama CNP Primary Care Provider [phone] Encounter Details Date Type Department Care Team ([facility] Contact Info) Description 09/24/2025 Orders Only [facility] [address] [place], [place] [id number] ProviderMary MD Social History Tobacco Use Types Packs/Day Years [...] on file documented as of this encounter Procedures Procedure Name Priority Date/Time Associated Diagnosis Comments HM MAMMOGRAPHY Routine 09/20/2025 documented in this encounter Results * Hm Mammography (09/20/2025) Anatomical Region Laterality Modality Other us Historical Provider HEALTH MAINTENANCE Final Result documented in this encounter Visit Diagnoses Not on filedocumented in this encounter Additional Health Concerns Assessment Noted Time PHQ-9 Depression Total Score: 4 08/17/20 24 10:49 AM EDT documented as of this encounter Care Teams Audit Clerk Relationship Specialty Start Date End Date Demarco Balderrama CNP PCP - General Family Medicine 06/11/25 documented as of this encounter
--- OUTSIDE RECORDS SUMMARY | 2025-10-23 10:48 | XMS_ITS | Clinical Summary ---
Author Organization [employer] Address [address] [place] [address] [address] [place] [address] Care Team Providers Care Senior Chemical Engineer Name Role Phone TacosDemarco PARISH Primary Care Provider [phone] Allergies No known active allergies Medications gabapentin [...] Encounters Date Type Department Care Team Description 09/24/2025 Orders Only [facility] MED & PEDS [address] [place] [address] ProviderMary MD 08/15/2025 5:00 PM EDT Office Visit [facility] [address] [place] [address] Florencia Hudson FNP Venous ulcers of both lower extremities (HCC) (Primary Dx) 08/15/2025 Travel from Last 3 Months Immunizations Immunization Administration [...] Sign Reading Time Taken Comments Blood Pressure 128/76 08/15/2025 4:58 PM EDT Pulse 65 08/15/2025 4:58 PM EDT Temperature 36.5 C (97.7 F) 08/15/2025 4:58 PM EDT Respiratory Rate 18 08/15/2025 4:58 PM EDT Oxygen Saturation 99% 08/15/2025 4:58 PM EDT Inhaled Oxygen Concentration - - Weight 102 kg (225 lb) 08/15/2025 4:58 PM EDT Height 172.1 cm (5' 7.75 ) 04/12/2025 4:03 PM ED T Body Mass Index 34.46 04/12/2025 4:03 PM EDT Plan of Treatment Health Maintenance Due Date Last Done Comments CT Colonography 1965 FIT DNA/Cologuard 1965 FIT 1965 FOBT 1965 HIV Screening 1965 Sigmoidoscopy 1965 Disability Screening 1965 Alcohol/Substance Use Screening 1977 Hepatitis C Screening 1983 Hepatitis B Vaccines (1 of 3 - 19+ 3-dose series) 1984 Pneumococcal Vaccine: 50+ Years (1 of 2 - PCV) 1984 Zoster Vaccines (2 of 2) 09/27/2020 08/02/2020 COVID-19 Vaccine (3 - season) 2025 03/03/2021, 02/09/2021 Depression Screening 08/17/2025 08/17/2024, 08/17/20 24 SDOH Screening 08/17/2025 08/17/2024 Tobacco Screening 08/17/2025 08/17/2024 HPV/Cotest 11/12/2025 11/12/2020 Cervical Cancer Screening 12/02/2026 Pap Smear 12/02/2026 12/02/2023, 11/12/2020 Mammogram 09/20/2027 09/20/2025 Colonoscopy 01/27/2031 01/27/2021 Colorectal Cancer Screening 01/27/2031 DTaP/Tdap/Td Vaccines (2 - Td or Tdap) 08/17/2034 08/17/2024 RSV Patients and Patients Aged 60 years or older (1 - 1-dose 75+ series) 2040 Influenza Vaccine Completed 06/05/2025, , 07/09/2023, Additional history exists HIB Vaccines Aged Out No longer eligi [...] Procedure Name Priority Date/Time Associated Diagnosis Comments MAMMOGRAPHY Routine 09/20/2025 PAP SMEAR Routine 12/02/2023 10:18 AM EST Pap smear for cervical cancer screening COLONOSCOPY Routine 01/27/2021 HPV MRNA E6/E7 Routine 11/12/2020 3:20 PM EST from Last 3 Months or Most Recently Relevant to Health Maintenance Results * Mammography (09/20/2025) Anatomical Region Laterality Modality Other us Historical Provider HEALTH MAINTENANCE Final Result * Pap Smear (12/02/2023 10:18 AM EST) Swab Cervical swab / Unknown 12/02/2023 10:18 AM EST 12/03/2023 9:40 AM EST Narrative [facility] - 12/15/2023 3:05 PM EST ----- ------- Name: Adele Damon Age/Sex: 58/F : 1965 Unit#: [id number] Attend Dr: Tianna Pereyra MD Re12/02/23 Status: DEP REF Location: [facility] Disch: ----- ------- SPEC : [id number] RECD: 12/03/23 STATUS: JUSTINE TORIBIO NUM: [id number] JOYCE: 12/02/23-1018 [facility] DR: Tianna Pereyra MD ENTERED: 12/03/23-1004 SP TYPE: Pap Smr [facility] DR: ORDERED: Pap Smear Interpretation Satisfactory for evaluation. Negative for intraepithelial lesion or malignancy. Clinical Information LMP: Postmenopausal Previous PAP test: Unknown date/findings Material Received ThinPrep-Vaginal/Cervical ----- ------- Signed (signature on file) PAPO Maldonado (ASCP) 12/15/23 1505 ----- ------- END OF REPORT Tianna Pereyra MD LAB CYTOLOGY ORDERABLES Final Re sult Performing Organization Address City/[facility]/ZIP Co de Phone Number [facility] [address] [place] [address] [phone] * Hm Colonoscopy (01/27/2021) Colonoscopy Normal Normal Narrative Ina Montes - 01/27/2021 Recommended 10 years. See see external hospital admission note on 01/27/2021 Mary Moore MD HEALTH MAINTENANCE Final Result * HPV mRNA E6/E7 (11/12/2020 3:20 PM EST) HPV nRNA E6/E7 Not Detected Not Detected [facility] Comment: This test was performed using the APTIMA HPV Assay ([employer] This assay detects E6/E7 viral messenger RNA (mRNA) from 14 high-risk HPV types (16,18,31,33,35,39,45,51,52,56,58,59,66,68). The analytical performance characteristics of this assay have been determined by [employer]. The modifications have not been cleared or approved by the FDA. This assay has been validated pursuant to the CLIA regulations and is used for clinical purposes. 11/12/2020 3:20 PM EST Marifer OLMOS LAB BLOOD ORDERABLES Marichuy salvador Result Performing Organization Address City/[facility]/ZIP Co de Phone Number [facility] [address] from Last 3 Months or Most Recently Relevant to Health Maintenance Insurance [employer] 3 Care Teams Senior Chemical Engineer Relationship Specialty Start Date End Date Demarco Balderrama CNP PCP - General Family Medicine 06/11/25
--- OUTSIDE RECORDS SUMMARY | 2025-10-23 10:48 | XMS_ITS | Encounter Summary ---
Author Organization [employer] Address [address] [place] [address] [address] [place] [address] Care Team Providers Care [employer] Hospitalist Name Role Phone Tianna Pereyra MD Primary Care Provider [phone] Demarco Balderrama CNP Primary Care Provider [phone] Encounter Details Date Type Department Care Team ([facility] st Contact Info) Description 08/21/2024 Orders Only [facility]ED[facility] [address] [place], [place] [phone] Tianna Pereyra MD [address] [place] [address] Social History Tobacco Use Types Packs/Day Years [...] documented as of this encounter Care Teams [employer] Hospitalist Relationship Specialty Start Date End Date Tianna Pereyra MD [address] [place] [address] PCP - General Family Medicine 11/12/20 06/10/25 Demarco Balderrama CNP [address] [place] [address] PCP - General Family Medicine 06/11/25 documented as of this encounter
== END 2025-10-23 10:31 | disposition home or self-care (01) ==
LOC: HO.HOS 09:56
PROVIDERS: PCP Student in an Organized Health Care Education/Training Program
DX: G56.03 Carpal tunnel syndrome, bilateral upper limbs (principal)
CPT/HCPCS: 99024

== ENCOUNTER → 2025-10-23 09:56 | Outpatient (BNVA) | payer OTHER, SELFPAY | PROVIDERS: PCP Student in an Organized Health Care Education/Training Program | DX: Z48.811 Encounter for surgical aftercare following surgery on the nervous system (principal); R20.0 Anesthesia of skin; R20.2 Paresthesia of skin; Z98.890 Other specified postprocedural states | CPT/HCPCS: 99212 ==